=== PATIENT | male | born 1970 | race Caucasian/White ===

== ENCOUNTER 2024-09-26 20:14 | Inpatient (IN) ==
[2024-09-26] MEDS ORDERED: Patient's ALLERGY Info needs ENTERED STA (20:18)
--- NOTE | 2024-09-26 20:51 | Emergency Department Note ---
Impression & Plan Hypothermia, Shivering ED Provider Note HISTORY OF PRESENT ILLNESS: Patient is a 54-year-old male presenting with rigors. Patient's significant other provides most of history. Reports that they were picked up in [place] by friends and traveling to [place] for her out when the patient started having diffuse diaphoresis and started shivering. Reports this continued for the entire trip up to [place] and he started shivering uncontrollably and they decided to present to the emergency department. Patient denies any recent illnesses. Significant other reports that he has "issues regulating his temperature." Patient denies any recent changes to medications. Denies any abdominal pain, nausea or vomiting. Denies any chest pain or shortness of breath. No reported sick contact exposures ROS: as above PHYSICAL EXAM: Constitutional: Patient appears in mild distress. Patient is having shivering on the bed. Anyi hugger in place. HENT: Head: Normocephalic and atraumatic. Eyes: EOMI, PERRL Mouth/Throat: Mucous membranes moist. Neck: Trachea midline. Neck supple. Cardiovascular: RRR, No murmurs, rubs or gallops. Intact distal pulses. Pulmonary/Chest: No respiratory distress. Breath sounds clear and equal bilaterally. No wheezes or rales. Abdominal: Abdomen soft, no tenderness, rebound or guarding. Musculoskeletal: No edema, tenderness or deformity noted. Skin: Warm and dry. No rash, erythema, pallor or cyanosis Psychiatric: Appropriate mood and affect for situation. Neurological: Alert and keenly responsive. CN II-XII grossly intact, moving all extremities equally and fully. MDM: - Vitals signs showed hypertension and hypothermia. Patient was placed in Anyi hugger. - History obtained via patient and patient significant other. History as above. - Chronic conditions affecting care: none - Differential diagnoses include, but are not limited to: bacteremia; viral syndrome; pneumonia; UTI; electrolyte abnormality; seizure - Order placed for continuous cardiac monitoring. At this time, monitor showed rate of 76 bpm with normal sinus rhythm, per my interpretation. - External medical records reviewed. - EKG interpreted by myself showed normal sinus rhythm. Rate 60 bpm. QT 428. No acute ischemic changes. Significant artifact on EKG secondary to patient's shivering. - Laboratory workup interpreted by myself showed normal WBC; normal PT/INR; elevated lactate (8.4); hypokalemia (K 3.1); elevated anion gap (19); normal troponin; normal CK; normal procalcitonin - CXR negative for pneumonia, per my interpretation - VBG shows acidosis (pH 7.23) - likely secondary to elevated lactic acid level - Blood cultures obtained - Viral respiratory panel negative - Patient given 2L NS in ER. Patient sepsis fluid volume calculation based on ideal body weight is 1936.20 mL. - Repeat lactate within normal limits - Patient empirically started on IV cefepime - CT chest with IV contrast showed left lower lobe atelectasis. No masses or consolidations. No acute pathology. - CT abdomen/pelvis with IV contrast negative for acute pathology other than mild enteritis and a distended urinary bladder. - UA negative for infection but noted to have ketonuria. - UDS ordered. - Patient's elevated lactate likely secondary to his active shivering on examination in the emergency department. Unclear etiology for who is hypothermia, but he was covered for sepsis with IV antibiotics. His lactate cleared with fluid resuscitation. - Discussion was had with catalytic case operator about patient's case and need for admission - Hospitalist, Dr. Donahue, consulted for admission - [facility] ASSESSMENT AND PLAN: Diagnosis: hypothermia; shivering Plan: admit Past Med/Surg History Problem List (Updated 09/27/24 @ 00:23 by Wandy Greer MD) Shivering (Acute) Hypothermia (Acute) Social History Smoking Status: Never smoker Preferred Language: Greenlandic Feels Safe at Home: Yes Results & Data (ED) Vital Signs Vital Signs - 24 hr 09/26/24 20:18 09/26/24 20:39 09/26/24 21:25 Temperature 32.9 C L Temperature Source Rectal Pulse Rate 86 63 Pulse Rate [Apical] Respiratory Rate 24 Respiratory Effort / Characteristics Non-Labored Spontaneous Respiratory Depth Normal Respiratory Pattern Regular Blood Pressure 185/134 H Blood Pressure [Right Arm] Blood Pressure Mean 151 Blood Pressure Mean [Right Arm] Pulse Oximetry 99 98 Oxygen Delivery Method Room Air Room Air Sepsis New/Unexplained Change in Mental Status No Sepsis Action Taken by Nursing No Action Required 09/26/24 21:31 09/26/24 22:37 09/26/24 23:00 Temperature 33.8 C L 36.4 C L Temperature Source Rectal Oral Pulse Rate 73 Pulse Rate [Apical] 66 76 Respiratory Rate 18 20 Respiratory Effort / Characteristics Respiratory Depth Normal Respiratory Pattern Blood Pressure 148/92 H Blood Pressure [Right Arm] 157/100 H 130/88 Blood Pressure Mean 114 Blood Pressure Mean [Right Arm] 119 102 Pulse Oximetry 96 97 95 Oxygen Delivery Method Room Air Room Air Room Air Sepsis New/Unexplained Change in Mental Status Sepsis Action Taken by Nursing 09/26/24 23:00 09/27/24 00:00 09/27/24 00:00 Temperature 36.6 C 36.7 C Temperature Source Oral Oral Pulse Rate 67 Pulse Rate [Apical] Respiratory Rate 12 Respiratory Effort / Characteristics Respiratory Depth Respiratory Pattern Blood Pressure 147/96 H Blood Pressure [Right Arm] Blood Pressure Mean 125 Blood Pressure Mean [Right Arm] Pulse Oximetry 97 Oxygen Delivery Method Room Air Sepsis New/Unexplained Change in Mental Status Sepsis Action Taken by Nursing Laboratory Data 09/26/24 20:34 09/26/24 20:34 Lab Results 09/26/24 09/26/24 09/26/24 Range/Units 20:26 20:34 20:36 WBC 9.91 (4.8-10.8) K/ul RBC 5.36 (4.70-6.10) M/uL Hgb 16.4 (14.0-18.0) g/dl Hct 48.8 (42.0-52.0) % MCV 91.0 (80.0-100.0) fL MCH 30.6 (25.0-34.0) pg MCHC 33.6 (32.0-36.0) g/dL RDW Std Deviation 43.9 (36.4-46.3) fL RDW Coeff of Marisol 13.0 (11.5-14.5) % Plt Count 217 (130-400) K/uL MPV 8.9 L (9.4-12.4) fL Immature Gran % (Auto) 0.4 % Neut % (Auto) 54.2 % Lymph % (Auto) 36.2 % [place] % (Auto) 5.2 % Eos % (Auto) 3.3 % Baso % (Auto) 0.7 % Neut # (Auto) 5.36 (1.40-6.50) K/uL Lymph # (Auto) 3.59 H (1.20-3.40) K/uL [place] # (Auto) 0.52 (0.11-0.59) K/uL Eos # (Auto) 0.33 (0.00-0.50) K/uL Baso # (Auto) 0.07 (0.00-0.20) K/uL Immature Gran # (Auto) 0.04 (0.01-0.20) K/uL PT 10.8 (9.0-12.0) Seconds INR 1.0 (0.9-1.1) VBG pH (7.36-7.41) VBG pCO2 (38-50) mmHg VBG pO2 mmHg VBG HCO3 mmol/L VBG O2 Saturation % VBG Base Excess mEq/L Sodium 141 (136-145) mmol/L Potassium 3.1 L (3.5-5.1) mmol/L Chloride 103 (98-107) mmol/L Carbon Dioxide 19 L (21-32) mmol/L Anion Gap 19 H (3-11) BUN 18 (6-23) mg/dl Creatinine 0.94 (0.6-1.4) mg/dl Est Cr Clr Drug Dosing Not Reportable eGFR 95.73 BUN/Creatinine Ratio 19.1 (10-20) Glucose 202 H (70-99(Fasting)) mg/dl POC Glucose 196 H (70-99) mg/dl Lactate (0.4-2.0) mmol/L Calcium 9.8 (8.6-10.3) mg/dl Magnesium 1.8 (1.7-2.4) mg/dl Total Bilirubin 0.8 (0.2-1.0) mg/dl Direct Bilirubin 0.2 (0-0.2) mg/dl AST 22 (13-39) U/L ALT 18 (7-52) U/L Alkaline Phosphatase 59 (34-104) U/L Total Creatine Kinase 84 (30-223) U/L Troponin I High Sens 5.0 (0-20) pg/ml Total Protein 8.4 H (6.0-8.3) gm/dl Albumin 5.0 (3.4-5.0) gm/dl Procalcitonin < 0.02 (0-0.5) ng/ml Urine Color Urine Appearance (Clear) Urine pH (4.5-7.5) Ur Specific [place] (1.000-1.030) Urine Protein (Negative) Urine Glucose (UA) (Negative) Urine Ketones (Negative) Urine Blood (Negative) Urine Nitrite (Negative) Urine Bilirubin (Negative) Urine Urobilinogen (Negative) Ur Leukocyte Esterase (Negative) Adenovirus (PCR) Not Detected (NotDetected) B. pertussis DNA (PCR) Not Detected (NotDetected) B.parapertussis DNA PCR Not Detected (NotDetected) C. pneumoniae DNA (PCR) Not Detected (NotDetected) Coronavirus OC43 (PCR) Not Detected (NotDetected) Coronavirus HKU1 (PCR) Not Detected (NotDetected) Coronavirus 229E (PCR) Not Detected (NotDetected) SARS-CoV-2 (PCR) Not Detected (NotDetected) Coronavirus NL63 (PCR) Not Detected (NotDetected) Human Metapneumovir PCR Not Detected (NotDetected) Influenza Type A (PCR) Not Detected (NotDetected) Influenza Type B (PCR) Not Detected (NotDetected) M. pneumoniae (PCR) Not Detected (NotDetected) Parainfluenza 1 (PCR) Not Detected (NotDetected) Parainfluenza 2 (PCR) Not Detected (NotDetected) Parainfluenza 3 (PCR) Not Detected (NotDetected) Parainfluenza 4 (PCR) Not Detected (NotDetected) RSV (PCR) Not Detected (NotDetected) Entero/Rhino (PCR) Not Detected (NotDetected) 09/26/24 09/26/24 09/27/24 Range/Units 20:51 22:47 00:16 WBC (4.8-10.8) K/ul RBC (4.70-6.10) M/uL Hgb (14.0-18.0) g/dl Hct (42.0-52.0) % MCV (80.0-100.0) fL MCH (25.0-34.0) pg MCHC (32.0-36.0) g/dL RDW Std Deviation (36.4-46.3) fL RDW Coeff of [place] (11.5-14.5) % Plt Count (130-400) K/uL MPV (9.4-12.4) fL Immature Gran % (Auto) % Neut % (Auto) % Lymph % (Auto) % [place] % (Auto) % Eos % (Auto) % Baso % (Auto) % Neut # (Auto) (1.40-6.50) K/uL Lymph # (Auto) (1.20-3.40) K/uL [place] # (Auto) (0.11-0.59) K/uL Eos # (Auto) (0.00-0.50) K/uL Baso # (Auto) (0.00-0.20) K/uL Immature Gran # (Auto) (0.01-0.20) K/uL PT (9.0-12.0) Seconds INR (0.9-1.1) VBG pH 7.23 L (7.36-7.41) VBG pCO2 54 H (38-50) mmHg VBG pO2 23 mmHg VBG HCO3 23 mmol/L VBG O2 Saturation < 60.0 % VBG Base Excess -5.5 mEq/L Sodium (136-145) mmol/L Potassium (3.5-5.1) mmol/L Chloride (98-107) mmol/L Carbon Dioxide (21-32) mmol/L Anion Gap (3-11) BUN (6-23) mg/dl Creatinine (0.6-1.4) mg/dl Est Cr Clr Drug Dosing eGFR BUN/Creatinine Ratio (10-20) Glucose (70-99(Fasting)) mg/dl POC Glucose (70-99) mg/dl Lactate 8.4 H* 1.4 (0.4-2.0) mmol/L Calcium (8.6-10.3) mg/dl Magnesium (1.7-2.4) mg/dl Total Bilirubin (0.2-1.0) mg/dl Direct Bilirubin (0-0.2) mg/dl AST (13-39) U/L ALT (7-52) U/L Alkaline Phosphatase (34-104) U/L Total Creatine Kinase (30-223) U/L Troponin I High Sens (0-20) pg/ml Total Protein (6.0-8.3) gm/dl Albumin (3.4-5.0) gm/dl Procalcitonin (0-0.5) ng/ml Urine Color Yellow Urine Appearance Clear (Clear) Urine pH 6.5 (4.5-7.5) Ur Specific [place] 1.034 H (1.000-1.030) Urine Protein Negative (Negative) Urine Glucose (UA) Negative (Negative) Urine Ketones 1+ H (Negative) Urine Blood Negative (Negative) Urine Nitrite Negative (Negative) Urine Bilirubin Negative (Negative) Urine Urobilinogen Negative (Negative) Ur Leukocyte Esterase Negative (Negative) Adenovirus (PCR) (NotDetected) B. pertussis DNA (PCR) (NotDetected) B.parapertussis DNA PCR (NotDetected) C. pneumoniae DNA (PCR) (NotDetected) Coronavirus OC43 (PCR) (NotDetected) Coronavirus HKU1 (PCR) (NotDetected) Coronavirus 229E (PCR) (NotDetected) SARS-CoV-2 (PCR) (NotDetected) Coronavirus NL63 (PCR) (NotDetected) Human Metapneumovir PCR (NotDetected) Influenza Type A (PCR) (NotDetected) Influenza Type B (PCR) (NotDetected) M. pneumoniae (PCR) (NotDetected) Parainfluenza 1 (PCR) (NotDetected) Parainfluenza 2 (PCR) (NotDetected) Parainfluenza 3 (PCR) (NotDetected) Parainfluenza 4 (PCR) (NotDetected) RSV (PCR) (NotDetected) Entero/Rhino (PCR) (NotDetected) Administered Medications Discontinued Medications Sodium Chloride (Nss) 1,000 mls @ 999 mls/hr IV .Q1H1M ONE Stop: 09/26/24 21:51 Last Infusion: 09/26/24 21:44 Dose: Infused Documented By: Admin: 09/26/24 21:15 Dose: 999 mls/hr Documented By: BRE Sodium Chloride (Nss) 1,000 mls @ 999 mls/hr IV .Q1H1M ONE Stop: 09/26/24 22:23 Last Infusion: 09/26/24 23:08 Dose: Infused Documented By: Admin: 09/26/24 21:44 Dose: 999 mls/hr Documented By: KALEY Cefepime HCl (Maxipime 2000mg) 2,000 mg in 20 mls @ 5 mls/min IV NOW STA; Protocol Stop: 09/26/24 21:27 Last Admin: 09/26/24 21:44 Dose: 5 mls/min Documented By: KALEY Ioversol (Optiray 320 100ml) 93 ml IV ONCE ONE Stop: 09/26/24 22:19 Last Admin: 09/26/24 22:19 Dose: 93 ml Documented By: JIMENA Imaging Data Radiologist's Impression: Abdomen/Pelvis CT 09/26/24 22:03 Exam(s): CT ABDOMEN + PELVIS With Contrast IV Amt: 93ml EXAM: CT Abdomen and Pelvis With Intravenous Contrast CLINICAL HISTORY: Reason for exam: sepsis. TECHNIQUE: Axial computed tomography images of the abdomen and pelvis with intravenous contrast. CTDI is 21.45 mGy and DLP is 1143.08 mGy-cm. Automated exposure control was utilized for the study. A dose lowering technique was utilized adhering to the principles of ALARA. CONTRAST: Patient received 93ml of IV contrast COMPARISON: None. FINDINGS: Lung bases: Concurrently performed CT chest reported separately. ABDOMEN: Diagnostic sensitivity of the exam is reduced by motion artifact. Liver: Mild diffuse steatosis. Scattered few small/tiny cysts No mass. Gallbladder and bile ducts: A somewhat distended gallbladder. No calcified stones. No ductal dilation. Pancreas: Unremarkable. No mass. No ductal dilation. Spleen: Unremarkable. No splenomegaly. Adrenals: Unremarkable. No mass. Kidneys and ureters: A 2.3 cm right and a 2.7 cm left renal simple cyst. No solid mass. No hydronephrosis. Stomach and bowel: A fluid/gas filled distended stomach.. Fluid-filled normal-caliber small bowel loops. No obstruction. No mucosal thickening. PELVIS: Appendix: No findings to suggest acute appendicitis. Bladder: Distended bladder. No mass. Reproductive: Moderately enlarged prostate gland. ABDOMEN and PELVIS: Intraperitoneal space: Unremarkable. No free air. No significant fluid collection. Bones/joints: No acute fracture. No dislocation. Postsurgical spine with posterior fusion instrumentation at L5-S1 level. Soft tissues: A moderate size fat-containing umbilical hernia. Vasculature: Moderate aortic atheromatous calcifications. No abdominal aortic aneurysm. Lymph nodes: No enlarged lymph nodes.. IMPRESSION: A fluid-filled normal-caliber small bowel loops with mild mucosal thickening, question mild enteritis. A distended urinary bladder. Otherwise no acute abdominal/pelvic CT findings. Electronically signed by: Efe Dee MD, BETHR 09/27/24 00:[address] 09/26/24 22:03 Exam(s): CT CHEST With Contrast IV Amt: 93ml EXAM: CT Chest With Intravenous Contrast CLINICAL HISTORY: Reason for exam: sepsis. TECHNIQUE: Axial computed tomography images of the chest with intravenous contrast. CTDI is 21.05 mGy and DLP is 732.42 mGy-cm. Automated exposure control was utilized for the study. A dose lowering technique was utilized adhering to the principles of ALARA. CONTRAST: Patient received 93ml of IV contrast COMPARISON: X-ray chest: 09/26/2024 FINDINGS: Lungs: Central airways are patent. Bilateral mild bronchial wall thickening. Mild centrilobular emphysema. Posteriorly subpleural left basilar linear atelectatic changes No mass. No consolidation. Pleural space: Unremarkable. No pneumothorax. No significant effusion. Heart: Unremarkable. No cardiomegaly. No significant pericardial effusion. Left coronary artery mild/moderate calcifications. Bones/joints: No acute fracture. No dislocation. Mild degenerative changes of the spine. Soft tissues: Unremarkable. Vasculature: Focal calcified plaque of the aortic arch.. No thoracic aortic aneurysm. Lymph nodes: Unremarkable. No enlarged lymph nodes. Other findings: A 2.8 cm left renal cyst.. IMPRESSION: Left lower lung lobe posteriorly linear atelectatic changes. No mass. No consolidation. No acute CT chest findings. . Electronically signed by: Efe Dee MD, [place] 09/27/24 00:02 AM Discharge Plan Visit Data Chief Complaint: Illness Stated Complaint: SWEATING PROFUSELY,SHAKING,CHILLS ED Provider: Wandy Greer Discharge Problem: Hypothermia, Shivering Forms Stand Alone Forms: My [facility] Referrals Referrals: Steven Girard MD [Physician] -
[2024-09-26 20:58] LABS: Basophils # (auto) 0.07 K/uL (0.00-0.20); Basophils % (auto) 0.7 %; Eosinophils # (auto) 0.33 K/uL (0.00-0.50); Eosinophils % (auto) 3.3 %; Hematocrit (blood only) 48.8 % (42.0-52.0); Hemoglobin 16.4 g/dl (14.0-18.0); Immature Granulocytes # (auto) 0.04 K/uL (0.01-0.20); Immature Granulocytes % (auto) 0.4 %; Lymphocytes # (auto) 3.59 K/uL (1.20-3.40); Lymphocytes % (auto) 36.2 %; Mean Corpuscular Hemoglobin 30.6 pg (25.0-34.0); Mean Corpuscular Hgb Conc 33.6 g/dL (32.0-36.0); Mean Platelet Volume 8.9 fL (9.4-12.4); Monocytes # (auto) 0.52 K/uL (0.11-0.59); Monocytes % (auto) 5.2 %; Neutrophils # (auto) 5.36 K/uL (1.40-6.50); Neutrophils % (auto) 54.2 %; Platelet Count 217 K/uL (130-400); RDW Standard Deviation 43.9 fL (36.4-46.3); Red Blood Count 5.36 M/uL (4.70-6.10); White Blood Count 9.91 K/ul (4.8-10.8)
[2024-09-26 21:13] LABS: Alanine Aminotransferase 18 U/L (7-52); Alkaline Phosphatase 59 U/L (34-104); Anion Gap 19 (3-11); Aspartate Aminotransferase 22 U/L (13-39); BUN Creatinine Ratio 19.1 (10-20); Bilirubin Direct 0.2 mg/dl (0-0.2); Bilirubin,Total 0.8 mg/dl (0.2-1.0); Blood Urea Nitrogen 18 mg/dl (6-23); Calcium 9.8 mg/dl (8.6-10.3); Carbon Dioxide 19 mmol/L (21-32); Chloride 103 mmol/L (98-107); Creatine Kinase 84 U/L (30-223); Glucose 202 mg/dl (70-99(Fasting)); Magnesium 1.8 mg/dl (1.7-2.4); Potassium 3.1 mmol/L (3.5-5.1); Sodium 141 mmol/L (136-145); Total Protein 8.4 gm/dl (6.0-8.3)
[2024-09-26] MEDS: SODIUM CHLORIDE 0.9% 1,000 ML IV ONE ×2 (21:15→21:44)
[2024-09-26 21:17] LABS: Base Excess VBG -5.5 mEq/L; HCO3 VBG 23 mmol/L; Oxygen Saturation VBG < 60.0 %; PCO2 VBG 54 mmHg (38-50); PO2 VBG 23 mmHg; pH VBG 7.23 (7.36-7.41)
[2024-09-26 21:21] LABS: Prothrombin Time 10.8 Seconds (9.0-12.0)
[2024-09-26] MEDS: CEFEPIME 2000MG 2,000 MG/20 ML SYR IV STA (21:44)
[2024-09-26 21:58] LABS: Adenovirus PCR Not Detected (NotDetected); Bordetella parapertussis PCR Not Detected (NotDetected); Bordetella pertussis PCR Not Detected (NotDetected); Chlamydia pneumoniae PCR Not Detected (NotDetected); Coronavirus 229E PCR Not Detected (NotDetected); Coronavirus CoV-2 (COVID19)PCR Not Detected (NotDetected); Coronavirus HKU1 PCR Not Detected (NotDetected); Coronavirus NL63 PCR Not Detected (NotDetected); Coronavirus OC43PCR Not Detected (NotDetected); Human Metapneumovirus PCR Not Detected (NotDetected); Influenza A PCR Not Detected (NotDetected); Influenza B PCR Not Detected (NotDetected); Mycoplasma pneumoniae PCR Not Detected (NotDetected); Parainfluenza Virus 1 PCR Not Detected (NotDetected); Parainfluenza Virus 2 PCR Not Detected (NotDetected); Parainfluenza Virus 3 PCR Not Detected (NotDetected); Parainfluenza Virus 4 PCR Not Detected (NotDetected); Respiratory Syncytial VirusPCR Not Detected (NotDetected); Rhinovirus/Enterovirus PCR Not Detected (NotDetected)
[2024-09-26] MEDS: OPTIRAY 320 100ml IV ONE (22:19)
--- NOTE | 2024-09-27 00:03 | CT Scan Report ---
Exam(s): CT CHEST With Contrast IV Amt: 93ml EXAM: CT Chest With Intravenous Contrast CLINICAL HISTORY: Reason for exam: sepsis. TECHNIQUE: Axial computed tomography images of the chest with intravenous contrast. CTDI is 21.05 mGy and DLP is 732.42 mGy-cm. Automated exposure control was utilized for the study. A dose lowering technique was utilized adhering to the principles of ALARA. CONTRAST: Patient received 93ml of IV contrast COMPARISON: X-ray chest: 09/26/2024 FINDINGS: Lungs: Central airways are patent. Bilateral mild bronchial wall thickening. Mild centrilobular emphysema. Posteriorly subpleural left basilar linear atelectatic changes No mass. No consolidation. Pleural space: Unremarkable. No pneumothorax. No significant effusion. Heart: Unremarkable. No cardiomegaly. No significant pericardial effusion. Left coronary artery mild/moderate calcifications. Bones/joints: No acute fracture. No dislocation. Mild degenerative changes of the spine. Soft tissues: Unremarkable. Vasculature: Focal calcified plaque of the aortic arch.. No thoracic aortic aneurysm. Lymph nodes: Unremarkable. No enlarged lymph nodes. Other findings: A 2.8 cm left renal cyst.. IMPRESSION: Left lower lung lobe posteriorly linear atelectatic changes. No mass. No consolidation. No acute CT chest findings. . Electronically signed by: Efe Dee MD, [place] 09/27/24 00:02 AM
--- NOTE | 2024-09-27 00:37 | CT Scan Report ---
Exam(s): CT ABDOMEN + PELVIS With Contrast IV Amt: 93ml EXAM: CT Abdomen and Pelvis With Intravenous Contrast CLINICAL HISTORY: Reason for exam: sepsis. TECHNIQUE: Axial computed tomography images of the abdomen and pelvis with intravenous contrast. CTDI is 21.45 mGy and DLP is 1143.08 mGy-cm. Automated exposure control was utilized for the study. A dose lowering technique was utilized adhering to the principles of ALARA. CONTRAST: Patient received 93ml of IV contrast COMPARISON: None. FINDINGS: Lung bases: Concurrently performed CT chest reported separately. ABDOMEN: Diagnostic sensitivity of the exam is reduced by motion artifact. Liver: Mild diffuse steatosis. Scattered few small/tiny cysts No mass. Gallbladder and bile ducts: A somewhat distended gallbladder. No calcified stones. No ductal dilation. Pancreas: Unremarkable. No mass. No ductal dilation. Spleen: Unremarkable. No splenomegaly. Adrenals: Unremarkable. No mass. Kidneys and ureters: A 2.3 cm right and a 2.7 cm left renal simple cyst. No solid mass. No hydronephrosis. Stomach and bowel: A fluid/gas filled distended stomach.. Fluid-filled normal-caliber small bowel loops. No obstruction. No mucosal thickening. PELVIS: Appendix: No findings to suggest acute appendicitis. Bladder: Distended bladder. No mass. Reproductive: Moderately enlarged prostate gland. ABDOMEN and PELVIS: Intraperitoneal space: Unremarkable. No free air. No significant fluid collection. Bones/joints: No acute fracture. No dislocation. Postsurgical spine with posterior fusion instrumentation at L5-S1 level. Soft tissues: A moderate size fat-containing umbilical hernia. Vasculature: Moderate aortic atheromatous calcifications. No abdominal aortic aneurysm. Lymph nodes: No enlarged lymph nodes.. IMPRESSION: A fluid-filled normal-caliber small bowel loops with mild mucosal thickening, question mild enteritis. A distended urinary bladder. Otherwise no acute abdominal/pelvic CT findings. Electronically signed by: Efe Dee MD, DABR 09/27/24 00:36 AM
[2024-09-27 00:38] LABS: Appearance Urine Clear (Clear); Bilirubin Urine Negative (Negative); Blood Urine Negative (Negative); Color Urine Yellow; Glucose Urine UA Negative (Negative); Ketones Urine 1+ (Negative); Leukocyte Esterase Urine Negative (Negative); Nitrite Urine Negative (Negative); Protein Urine Negative (Negative); Specific Gravity Urine 1.034 (1.000-1.030); Urobilinogen Urine Negative (Negative); pH Urine 6.5 (4.5-7.5)
[2024-09-27 00:54] LABS: Amphetamines+Metham, Urine Neg (Neg); Barbiturates, Urine Neg (Neg); Benzodiazepine, Urine Neg (Neg); Cocaine, Urine Neg (Neg); Fentanyl, Urine Neg (Neg); MDMA (Ecstacy), Urine Neg (Neg); Marijuana, Urine Pos (Neg); Methadone, Urine Neg (Neg); Opiate, Urine Neg (Neg); Phencyclidine, Urine Neg (Neg)
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
[2024-09-27 01:29] LABS: Thyroid Stimulating Hormone 1.786 uIu/ml (0.300-4.500)
--- NOTE | 2024-09-27 01:37 | XRay Report ---
Exam(s): XR CXR 1 VIEW EXAM: XR Chest, 1 View CLINICAL HISTORY: Reason for exam: Sepsis. TECHNIQUE: Frontal view of the chest. COMPARISON: None. FINDINGS: Lungs: No focal lesion. No consolidation. Pleural space: Unremarkable. No pneumothorax. Heart: Unremarkable. No cardiomegaly. Mediastinum: Unremarkable. Normal mediastinal contour. Bones/joints: Unremarkable. No acute fracture. IMPRESSION: No acute cardiopulmonary process. . Electronically signed by: Efe Dee MD, DABR 09/27/24 01:36 AM
[2024-09-27] MEDS ORDERED: GLUCOSE 40% GEL 15 GM TUBE PO PRN (02:46)
[2024-09-27] MEDS ORDERED: ONDANSETRON INJ 2 MG/ML 2 ML VIAL IV PRN (02:46)
[2024-09-27] MEDS ORDERED: GLUCAGON FOR INJ 1 MG VIAL SQ PRN (02:46)
[2024-09-27] MEDS ORDERED: DEXTROSE 50% 50 ML SYRINGE IV PRN (02:46)
[2024-09-27] MEDS ORDERED: CARBOHYDRATES FOR HYPOGLYCEMIA PO PRN (02:46)
[2024-09-27] MEDS ORDERED: GLUCOSE 10 TAB/TUBE PO PRN (02:46)
[2024-09-27 06:56] LABS: Hematocrit (blood only) 39.4 % (42.0-52.0); Hemoglobin 13.9 g/dl (14.0-18.0); Mean Corpuscular Hemoglobin 30.9 pg (25.0-34.0); Mean Corpuscular Hgb Conc 35.3 g/dL (32.0-36.0); Mean Corpuscular Volume 87.6 fL (80.0-100.0); Mean Platelet Volume 8.8 fL (9.4-12.4); Platelet Count 160 K/uL (130-400); RDW Coefficient of Variation 13.2 % (11.5-14.5); RDW Standard Deviation 42.5 fL (36.4-46.3); White Blood Count 6.19 K/ul (4.8-10.8)
[2024-09-27 07:10] LABS: BUN Creatinine Ratio 16.9 (10-20); Calcium 8.8 mg/dl (8.6-10.3); Creatinine Clr Calc Pharmacy 115.9 ml/min; Potassium 3.9 mmol/L (3.5-5.1)
--- NOTE | 2024-09-27 08:04 | Hospitalist Progress Note ---
Date of Service September 27, 2024 Assessment & Plan (1) Hypothermia: (2) Diabetes: (3) Hypertension: Plan Librado is a 54yo [place] with h/o DM, HTN, HLD, anxiety, fibromyalgia who presented to the ED with diaphoresis and rigors, and was admitted with mild hypothermia. Reports having many similar episodes, most recently May 2024, that were self-limiting. Initial vitals were notable for temp of 32.9 and BP of 185/134. Labs showed AGMA and elevated lactate. Imaging negative for any acute process. Hypothermia Patient hypothermic (32.9) and hypertensive (185/134) on arrival with diaphoresis & rigors. Vitals and sx improved with Anyi hugger. Pt and his partner report frequent episodes of similar shaking, sweating, and feeling cold that typically resolve w rest. Denies any environmental exposure that could be responsible. Extensive workup was done to determine etiology of this recurrent hypothermia: - Initial labs concerning with elevated lactate of 8.4 --> 2L NSS --> improved to 1.4; VBG w pH 7.23, pCO2 54 + BMP w bicarb 19 - Concern for endocrine fxn: TSH = 1.786; Cortisol = 13. 56 - Concern for infection: CK 84, procal < 0.02, UA only 1+ ketones; biofire neg; blood cx pending; s/p 1 x cefepime - There is a possibility for substance use to affect body temp. UDS only THC+ but does not cover all common recreational agents - CBC, coag panel, LFTs also wnl. BMP now normalized w gap closed & bicarb of 25 Continue Tylenol & Zofran as needed. Follow-up cx. Hopeful d/c tomorrow; pt to establish a PCP for close f/u DM - Patient currently not taking any medications (had a lapse in insurance) - A1c now 5.4%. SSI available w CF 50, CR 25, target BG 110-140 HTN - Patient does not take any medications for this; BP stable ~150/80, monitor for now Diet: Admission and Anticipated Discharge Date Admission Date: September 27, 2024 Supervising Physician Co-Signing Physician Notes Attending Physician Supervision Note: I independently interviewed and examined the patient and verified the hutton history and physical, reviewed labs and image studies and agree with findings and care plan noted above. 54 y/o M presented with rigors and hypothermia. Has had similar symptoms in past but not as severe. Comfortable in this. Has had problem with fibromyalgia, sleep disturbance - not sleeping for days off and on. vitals noted nad heent nc at mmm breathing unlabored no accessory muscles good effort skin no rashes no pallor or icterus neuro no focal deficits. RRR, CTA Hypothermia with rigors - endocrine work up neg - tsh normal, cortisol - 13. Infection work up in process - one blood cx + this is likely contaminant. will wait for second blood cx result. WBC normal. Substance use is also a differential - Urine tox + for marijuana. ? viral illness - noted lymphocytosis. Viral panel negative though. -continue ceftriaxone Chronic sleep disturbance - has been on trazodone but 50mg dose makes him groggy the next day. -discussed trialing trazodone at 25mgs scheduled at home to maintain regular sleep pattern. -trial one dose here. Fibromyalgia - on cannabis at home. h/o [place] syndrome - chronic symptoms - prescribed cannabis as outpatient. Discussed resuming therapy and also adding DBT for regulation of probable autonomic dysfunction. Anticipate d/c home in am if cultures returns processor to be contaminant. Subjective Says he feels completely back to baseline, wants to go home. Partner is with him in the room and expresses concern that he has these hypotensive episodes often, and they don't know why. They have never previously required a hospital stay, but this episode would not improve despite rest. Review of Systems 2 Review of Systems: As per HPI. Physical Exam 2 Physical Exam: Gen: NAD, WD/WN HEENT: NCAT, PERRL CV: RRR, no m/r/g, S1/S2 normal, nl cap refill, no edema Resp: CTAB, symmetrical chest rise, breathing non-labored Abd: Soft, NT/ND, +BS, no HSM MSK: Full ROM, normal str, no gross deformities Skin: Warm, dry, pink, no rashes or lesions Neuro: AOx3, CN II-XII grossly intact Psych: Speech pace normal. Thoughts linear and goal-directed. Impassively describes his myriad medical issues w/o urgency to treat them Results & Data Results & Data Vital Signs (Past 12 Hours) Vital Signs Temp Pulse Pulse Pulse Resp BP BP 09/27/24 07:43 37 C 73 18 143/85 H 09/27/24 02:35 172/88 H 09/27/24 02:30 36.8 C 77 16 160/91 H 09/27/24 01:36 74 09/27/24 01:00 74 20 146/91 H 09/27/24 00:00 67 12 147/96 H 09/27/24 00:00 36.7 C 09/26/24 23:00 36.6 C 09/26/24 23:00 73 148/92 H 09/26/24 22:37 36.4 C L 76 20 130/88 09/26/24 21:31 33.8 C L 66 18 157/100 H 09/26/24 21:25 63 09/26/24 20:39 09/26/24 20:18 32.9 C L 86 24 185/134 H Pulse Ox O2 Del Method 09/27/24 07:43 96 Room Air 09/27/24 02:35 09/27/24 02:30 98 Room Air 09/27/24 01:36 09/27/24 01:00 97 Room Air 09/27/24 00:00 97 Room Air 09/27/24 00:00 09/26/24 23:00 09/26/24 23:00 95 Room Air 09/26/24 22:37 97 Room Air 09/26/24 21:31 96 Room Air 09/26/24 21:25 09/26/24 20:39 98 Room Air 09/26/24 20:18 99 Room Air Laboratory Results 09/27/24 06:22 09/27/24 06:22 Resident Activity Tracking Resident Involvement: Resident Care Provided Care Provided: Adult Hospital Medicine
[2024-09-27 08:07] LABS: Estimated Average Glucose 108 mg/dl; Hemoglobin A1C 5.4 % (4.5-5.6)
[2024-09-27] MEDS: INSULIN ASPART PER UNIT CHARGE SC SCH (08:14)
[2024-09-27] MEDS: ACETAMINOPHEN 325 MG TAB PO PRN (08:15)
--- NOTE | 2024-09-27 13:45 | Electrocardiogram Report ---
Test Reason : Blood Pressure : */* mmHG Vent. Rate : 60 BPM Atrial Rate : 60 BPM P-R Int : 168 ms QRS Dur : 86 ms QT Int : 428 ms P-R-T Axes : 47 65 9 degrees QTcB Int : 428 ms Normal sinus rhythm Possible Left atrial enlargement Borderline ECG No previous ECGs available Marked baseling artifact Confirmed by Candida Francis (Kati) on 09/27/2024 1:45:48 PM Referred By: REFERRED SELF Confirmed By: Candida Francis
[2024-09-27 17:10] LABS: A calco-baum cmplx NotReported Not Detected (NotDetected); Bact fragilis Not Reported Not Detected (NotDetected); Blood Culture Id Panel See PCR Comment (NotDetected); C auris Not Reported Not Detected (NotDetected); Calbicans Not Reported Not Detected (NotDetected); Candida glabrata Not Reported Not Detected (NotDetected); Candida krusei Not Reported Not Detected (NotDetected); Cneoformans/gatti Not Reported Not Detected (NotDetected); Cparapsilosis Not Reported Not Detected (NotDetected); E cloacae compx Not Reported Not Detected (NotDetected); Efaecalis Not Reported Not Detected (NotDetected); Efaecium Not Reported Not Detected (NotDetected); Enterobacterales Not Reported Not Detected (NotDetected); Escherichia coli Not Reported Not Detected (NotDetected); H influenzae Not Reported Not Detected (NotDetected); K aerogenes Not Reported Not Detected (NotDetected); Koxytoca Not Reported Not Detected (NotDetected); Kpneumoniae grp Not Reported Not Detected (NotDetected); Lmonocyt Not Reported Not Detected (NotDetected); N meningitidis Not Reported Not Detected (NotDetected); P aeruginosa Not Reported Not Detected (NotDetected); Proteus spp Not Reported Not Detected (NotDetected); Salmonella spp Not Reported Not Detected (NotDetected); Staph lugdunensis Not Reported Not Detected (NotDetected); Staph spp. Not Reported DETECTED (NotDetected); Staphaureus Not Reported Not Detected (NotDetected); Staphepi Not Reported Not Detected (NotDetected); Stenmaltophilia Not Reported Not Detected (NotDetected); Strep agal(GrpB) Not Reported Not Detected (NotDetected); Strep pneum Not Reported Not Detected (NotDetected); Strep pyog (GrpA) Not Reported Not Detected (NotDetected); Strep spp Not Reported Not Detected (NotDetected)
[2024-09-27 17:16] LABS: Staphylococcus spp. DETECTED (NotDetected)
[2024-09-27] MEDS: traZODone HCL 50 MG TAB PO SCH (20:59)
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
[2024-09-28 10:45] LABS: Basophils # (auto) 0.02 K/uL (0.00-0.20); Basophils % (auto) 0.4 %; Eosinophils % (auto) 4.3 %; Hemoglobin 14.4 g/dl (14.0-18.0); Immature Granulocytes # (auto) 0.02 K/uL (0.01-0.20); Immature Granulocytes % (auto) 0.4 %; Lymphocytes # (auto) 1.33 K/uL (1.20-3.40); Lymphocytes % (auto) 28.7 %; Mean Corpuscular Hgb Conc 35.1 g/dL (32.0-36.0); Mean Corpuscular Volume 88.2 fL (80.0-100.0); Mean Platelet Volume 8.9 fL (9.4-12.4); Monocytes # (auto) 0.32 K/uL (0.11-0.59); Monocytes % (auto) 6.9 %; Neutrophils # (auto) 2.75 K/uL (1.40-6.50); Neutrophils % (auto) 59.3 %; Platelet Count 160 K/uL (130-400); RDW Coefficient of Variation 13.2 % (11.5-14.5); RDW Standard Deviation 42.8 fL (36.4-46.3); Red Blood Count 4.65 M/uL (4.70-6.10); White Blood Count 4.64 K/ul (4.8-10.8)
[2024-09-28 10:51] LABS: BUN Creatinine Ratio 13.3 (10-20); Calcium 9.1 mg/dl (8.6-10.3); Creatinine Clr Calc Pharmacy 100.4 ml/min; Potassium 4.1 mmol/L (3.5-5.1)
--- NOTE | 2024-09-28 18:25 | Billing Data ---
Date of Service September 28, 2024 Coding Level of Care Code 77005 IN/OBS DISCH 30 MIN/LESS
== END 2024-09-28 12:05 | disposition home or self-care (01) | DRG 923 ==
LOC: ED 20:14 → SUATTDRO 09-27 01:02 → 3N 09-27 01:02